=== PATIENT | male | born 1965 | race Caucasian/White ===

== ENCOUNTER 2023-08-24 05:55 | Day surgery (SDC) | payer OTHER ==
[2023-08-23 14:02] LABS: BASOPHILS % (AUTO) 0.1 % (0-1); EOSINOPHILS % (AUTO) 0.4 % (0-6); HEMATOCRIT 48.3 % (42.0-52.0); HEMOGLOBIN 16.2 g/dl (14.0-17.9); LYMPHOCYTES # (AUTO) 1.5 X10'3 (1.1-4.8); LYMPHOCYTES % (AUTO) 16.8 % (21-51); MEAN CORPUSCULAR HEMOGLOBIN 29.1 PG (27.0-31.0); MEAN CORPUSCULAR HGB CONC 33.5 g/dL (33.0-36.5); MEAN CORPUSCULAR VOLUME 87.1 FL (78-98); MONOCYTES # (AUTO) 0.8 X10'3 (0-0.9); MONOCYTES % (AUTO) 9.2 % (2-12); NEUTROPHILS # (AUTO) 6.6 X10'3 (1.8-7.7); NEUTROPHILS % (AUTO) 73.5 % (42-75); PLATELET COUNT 229 X10'3 (140-440); RED BLOOD COUNT 5.54 X10'6 (4.70-6.10); RED CELL DISTRIBUTION WIDTH 14.8 % (11.5-14.5); WHITE BLOOD COUNT 8.9 X10'3 (4.5-11.0)
[2023-08-23 14:15] LABS: ALBUMIN 4.3 G/DL (3.4-5.0); ANION GAP 2 (8-16); BLOOD UREA NITROGEN 16 MG/DL (7-18); BUN/CREATININE RATIO 19.8 (10.0-20.0); CALCIUM 8.4 MG/DL (8.5-10.1); CHLORIDE 105 MMOL/L (99-107); CREATININE 0.81 MG/DL (0.60-1.10); GLUCOSE 99 MG/DL (70-104); POTASSIUM 4.3 MMOL/L (3.5-5.1); SODIUM 144 MMOL/L (135-145); TOTAL CARBON DIOXIDE 37.5 MMOL/L (24-32); eGFR > 90 ML/MIN
[2023-08-23 14:20] LABS: APTT 27 SECONDS (22-32); PROTHROMBIN TIME 10.3 SECONDS (9.0-12.0)
[~2023-08-24] VITALS: Ht 175.3 cm; Wt 95.0 kg
[2023-08-24] VITALS (13 sets, daily range): BP systolic 122–136; BP diastolic 48–56; PULSE 63–75; RESP 12–15; TEMP 98.2; O2SAT 95–97
[2023-08-24] MEDS ORDERED: LEVO175T7 PO (06:09)
[2023-08-24] MEDS ORDERED: EPLE25TA4 PO (06:09)
[2023-08-24] MEDS ORDERED: SPIR25TA5 PO (06:09)
[2023-08-24] MEDS ORDERED: FURO20TA4 PO (06:09)
[2023-08-24] MEDS ORDERED: FAMO40TA58 PO (06:09)
[2023-08-24] MEDS ORDERED: SACU1TAB PO (06:09)
[2023-08-24] MEDS ORDERED: EMPA10TA PO (06:09)
[2023-08-24] MEDS ORDERED: METO-395 PO (06:09)
[2023-08-24] MEDS ORDERED: FEXO-271 PO (06:33)
[2023-08-24] MEDS ORDERED: FERR-116 PO (06:33)
[2023-08-24] MEDS ORDERED: NITR0.4T51 SL (06:33)
[2023-08-24] MEDS: normal saline 1,000 ML IV SCH (07:19)
[2023-08-24] MEDS: diphenhydrAMINE 25mg capsule PO PRN (07:19)
[2023-08-24] MEDS: LORazepam 0.5 MG tablet PO PRN (07:19)
[2023-08-24] MEDS ORDERED: heparin 1,000unit/ml 10ml vial 10 ML ONE (07:21)
[2023-08-24] MEDS ORDERED: verapamil 2.5 mg/ml inj IV ONE (07:21)
[2023-08-24] MEDS ORDERED: midazolam 1 mg/ML 2ml injection ONE (07:21)
[2023-08-24] MEDS ORDERED: iohexol 350 MG/ML 50ML vial IV ONE ×2 (07:21→08:17)
[2023-08-24] MEDS ORDERED: fentaNYL/PF 50MCG/1 ML 2ML syringe ONE (07:21)
[2023-08-24] MEDS ORDERED: LIDOcaine 1% (10mg/ml) 2ml vial ONE (07:21)
[2023-08-24] MEDS ORDERED: nitroGLYCERIN 500mcg/5mL D5W 5 ML IV ONE (07:22)
[2023-08-24] MEDS ORDERED: iohexol 350MG/ML 100ml bottle IV ONE (07:22)
[2023-08-24 08:53] LABS: ISTAT HGB ART 14.6 g/dl (14.0-17.9); ISTAT Hct ART 43 %PCV (42-52); ISTAT O2 SATURATION ARTERIAL 96 % (95-98); ISTAT SOURCE ART
[2023-08-24 09:31] LABS: ISTAT HGB MIX 13.9 g/dl (14.0-17.9); ISTAT Hct MIX 41 %PCV (42-52); ISTAT O2 SATURATION MIX VENOUS 71 % (60-80); ISTAT SOURCE OTHER
== END 2023-08-24 15:30 | disposition home or self-care (01) ==
LOC: SSTAY O 05:55
PROVIDERS: ATTEND Internal Medicine Cardiovascular Disease
DX: I35.1 Nonrheumatic aortic (valve) insufficiency (principal); I42.9 Cardiomyopathy, unspecified; I11.0 Hypertensive heart disease with heart failure; I50.23 Acute on chronic systolic (congestive) heart failure; E78.5 Hyperlipidemia, unspecified; E11.9 Type 2 diabetes mellitus without complications; I27.20 Pulmonary hypertension, unspecified; I77.810 Thoracic aortic ectasia; E66.01 Morbid (severe) obesity due to excess calories; Z68.29 Body mass index [BMI] 29.0-29.9, adult; Z88.8 Allergy status to other drugs, medicaments and biological substances; Z82.49 Family history of ischemic heart disease and other diseases of the circulatory system; Z81.8 Family history of other mental and behavioral disorders
CPT/HCPCS: 36415; 76937; 80048; 82803; 85014; 85025; 85610; 85730; 93005; 93460; 93567; J1644; J2250; J3010; J3490; J7030; Q0163; Q9967; 93458; 99152; 99153; A6258; A6402; A6449; C1725; C1751; C1894

== ENCOUNTER 2023-12-23 05:37 | Inpatient (IN) | payer OTHER ==
[2023-12-15 14:30] LABS: BILIRUBIN,URINE NEGATIVE (Neg); CLARITY,URINE CLEAR (Clear); COLOR,URINE YELLOW (Yellow); GLUCOSE, URINE 500 mg/dl (Neg); KETONES,URINE TRACE mg/dl (Neg); LEUKOCYTE ESTERASE ,URINE NEGATIVE (Neg); NITRITES, URINE NEGATIVE (Neg); OCCULT BLOOD,URINE NEGATIVE (Neg); PROTEIN,URINE NEGATIVE (Neg)
[2023-12-15 14:31] LABS: UA COLLECTION TYPE VOIDED
[2023-12-15 14:35] LABS: BASOPHILS % (AUTO) 0.1 % (0-1); EOSINOPHILS % (AUTO) 0.2 % (0-6); LYMPHOCYTES # (AUTO) 1.4 X10'3 (1.1-4.8); LYMPHOCYTES % (AUTO) 13.8 % (21-51); MEAN CORPUSCULAR HEMOGLOBIN 29.8 PG (27.0-31.0); MEAN CORPUSCULAR HGB CONC 33.8 g/dL (33.0-36.5); MEAN CORPUSCULAR VOLUME 88.4 FL (78-98); MEAN PLATELET VOLUME 8.3 FL (7.4-10.4); MONOCYTES # (AUTO) 0.9 X10'3 (0-0.9); MONOCYTES % (AUTO) 8.4 % (2-12); NEUTROPHILS % (AUTO) 77.5 % (42-75); PRE OP HEMOGLOBIN 15.5 g/dL (14.0-17.9); PRE OP PLATELET COUNT 245 X10'3 (140-440); PRE OP WHITE BLOOD COUNT 10.3 10'3 (4.8-10.8); RED CELL DISTRIBUTION WIDTH 13.6 % (11.5-14.5)
[2023-12-15 14:41] LABS: PRE OP PROTIME 10.4 SECONDS (9.0-12.0)
[2023-12-15 14:43] LABS: ALBUMIN 3.9 G/DL (3.4-5.0); ALBUMIN/GLOBULIN RATIO 1.1 (1.1-1.5); ALKALINE PHOSPHATASE 74 IU/L (46-116); BLOOD UREA NITROGEN 19 MG/DL (7-18); BUN/CREATININE RATIO 18.8 (10.0-20.0); CALCIUM 8.8 MG/DL (8.5-10.1); CHLORIDE 104 MMOL/L (99-107); CREATININE 1.01 MG/DL (0.60-1.10); PRE OP ALT 29 U/L (30-65); PRE OP ANION GAP 7 (8-16); PRE OP AST 15 U/L (10-37); PRE OP BILIRUB, TOTAL 0.8 MG/DL (0.0-1.0); PRE OP GLUCOSE 98 MG/DL (70-104); PRE OP POTASSIUM 3.9 MMOL/L (3.4-5.1); PRE OP SODIUM 140 MMOL/L (135-145); TOTAL CARBON DIOXIDE 29.1 MMOL/L (24-32); TOTAL PROTEIN 7.3 G/DL (6.4-8.2); eGFR 76 ML/MIN
[2023-12-15 14:44] LABS: HEMOGLOBIN A1C 5.4 % (4.5-6.2)
[2023-12-19 06:56] LABS: ABG BASE EXCESS 1.7 mmol/L (-2.0-2.0); ABG OXYGEN SATURATION 97.3 % (94-97); ABG PCO2 (T) 35.4 mmHg (35.0-48.0); ABG PH (T) 7.466 (7.340-7.440); ABG PO2 (T) 90.8 mmHg (75.0-100.0); FCOHb 0.1 % (0.0-3.9); FHHb 2.7 % (0.0-5.0); FMetHb 0.3 % (0.0-1.5); FO2Hb 96.9 % (94-97); MODE ROOM AIR; TOTAL HEMOGLOBIN 16.4 G/dl (14.0-17.9)
[2023-12-23] VITALS (26 sets, daily range): BP systolic 93–149; BP diastolic 57–88; PULSE 71–108; RESP 11–19; TEMP 98; O2SAT 96–100
[~2023-12-23] VITALS: Ht 170.2 cm; Wt 95.7 kg
[2023-12-23] MEDS: midazolam 1 mg/ML 2ml injection IV ONE ×2 (05:30→08:00)
[2023-12-23] MEDS: DOCUMENT DATE & TIME OF BETA-BLOCKER PO ONE (05:30)
[2023-12-23] MEDS: Insulin Reg/NS 100units/100mL 100 ML IV SCH ×2 (05:30→12:44)
[~2023-12-23 05:37] MED LIST: ASCO500C14 PO; CHOL500061 PO; EMPA10TA PO; EPLE25TA4 PO; FAMO40TA58 PO; FERR-116 PO; FEXO-271 PO; FURO20TA4 PO; LEVO175T7 PO; METO-395 PO; MULT-1168 PO; SACU1TAB PO; dextrose 50%-water 50ml dispensing syringe IV PRN; insulin glargine (Lantus) pen - multi-dose SQ PRN
[2023-12-23] MEDS: ceFAZolin 1000mg inj ONE (06:07)
[2023-12-23] MEDS: epiNEPHrine 1 mg/ml inj ONE (06:07)
[2023-12-23] MEDS: vancomycin 1,000mg inj ONE (06:08)
[2023-12-23] MEDS: ringers solution, lacted 1,000 ML IV SCH (06:13)
[2023-12-23] MEDS: vancomycin 1,500 MG in NS 300ml IV soln IV ONE (06:14)
[2023-12-23] MEDS: cefazolin 2gm/D5W 100mL 100 ML IV ONE (06:14)
[2023-12-23] MEDS: mupirocin 2% nasal ointment 1gm UD NS ONE (06:14)
[2023-12-23] MEDS: metoprolol tartrate 12.5mg (1/2 tablet) PO ONE (06:20)
[2023-12-23] MEDS: famotidine 20mg tablet PO ONE (06:23)
[2023-12-23] MEDS ORDERED: MIDAZolam 1mg/ml 10ml vial ONE (07:44)
[2023-12-23] MEDS ORDERED: SUfentanil 50mcg/ml 1ml amp IV ONE (07:45)
[2023-12-23] MEDS ORDERED: rocuronium 10mg/ml inj IV ONE ×3 (07:54→09:42)
[2023-12-23] MEDS ORDERED: propofol inj 20 ML IV ONE (07:54)
[2023-12-23] MEDS ORDERED: 0.9 % SODIUM CHLORIDE 10 ML VIAL ONE (07:54)
[2023-12-23] MEDS ORDERED: fentaNYL/PF 50MCG/1 ML 2ML syringe IV PRN (08:00)
[2023-12-23] MEDS: FENTANYL-0.9 % NACL/PF 100 ML IV SCH (08:00)
[2023-12-23] MEDS: midazolam 100mg in NS 100ml 100 ML IV SCH (08:00)
[2023-12-23] MEDS ORDERED: isoflurane 100ml inhalation liquid IH ONE (08:15)
[2023-12-23] MEDS ORDERED: LIDOcaine 2% (20mg/ml) 5ml vial ONE (08:15)
[2023-12-23] MEDS ORDERED: ePHEDrine 50MG/ML INJ. ONE (08:16)
[2023-12-23] MEDS ORDERED: phenylephrine 10mg/ml inj. -priapism dosing ONE (08:16)
[2023-12-23 09:18] LABS: ABG BASE EXCESS -0.2 mmol/L (-2.0-2.0); ABG OXYGEN SATURATION 99.5 % (94-97); ABG PCO2 33.4 mmHg (35.0-48.0); ABG PH 7.456 (7.340-7.440); ABG PO2 448.5 mmHg (75.0-100.0); CL (ABG) 104 mmol/L (99-107); FCOHb 0.2 % (0.0-3.9); FHHb 0.5 % (0.0-5.0); FMetHb 0.1 % (0.0-1.5); FO2Hb 99.2 % (94-97); GLUCOSE (ABG) 126 mg/dl (70-104); IONIZED CA (ABG) 1.11 mmol/L (1.10-1.30)
[2023-12-23] MEDS: vancomycin 1,000mg inj IVT ONE (09:21)
[2023-12-23] MEDS ORDERED: dexamethasone sod phosphate 4mg/ml inj. ONE (09:43)
[2023-12-23] MEDS ORDERED: ondansetron/PF 4mg/2ml inj ONE (09:43)
[2023-12-23 09:52] LABS: ABG HCO3 24.5 mmol/L (22.0-26.0); ABG OXYGEN SATURATION 98.8 % (94-97); ABG PCO2 35.3 mmHg (35.0-48.0); ABG PO2 216.4 mmHg (75.0-100.0); CL (ABG) 101 mmol/L (99-107); FCOHb 0.3 % (0.0-3.9); FHHb 1.2 % (0.0-5.0); FMetHb 0.3 % (0.0-1.5); FO2Hb 98.2 % (94-97); GLUCOSE (ABG) 137 mg/dl (70-104); K (ABG) 5.3 mmol/L (3.5-5.1); TOTAL HEMOGLOBIN 10.7 G/dl (14.0-17.9)
[2023-12-23 10:18] LABS: ABG HCO3 VENOUS 24.6 mmol/L (21.0-28.0); ABG OXYGEN SATURATION VENOUS 79.1 % (75 - 99 %); ABG PCO2 VENOUS 40.1 mmHg (41.0-54.0); ABG PH (VENOUS) 7.406 (7.310-7.450); ABG PO2 VENOUS 42.8 mmHg (25.0-35.0); CL (ABG) 101 mmol/L (99-107); FCOHb VENOUS 0.1 %; FHHb VENOUS 20.8 %; FMetHb VENOUS 0.3 % (0.0 - 0.5); FO2Hb VENOUS 78.8 %; GLUCOSE (ABG) 163 mg/dl (70-104); IONIZED CA (ABG) 1.05 mmol/L (1.10-1.30); K (ABG) 4.9 mmol/L (3.5-5.1); TOTAL HEMOGLOBIN 11.8 G/dl (14.0-17.9)
[2023-12-23 10:42] LABS: ABG BASE EXCESS -0.5 mmol/L (-2.0-2.0); ABG HCO3 23.9 mmol/L (22.0-26.0); ABG OXYGEN SATURATION 99.2 % (94-97); ABG PCO2 38.1 mmHg (35.0-48.0); ABG PH 7.415 (7.340-7.440); ABG PO2 358.8 mmHg (75.0-100.0); CL (ABG) 100 mmol/L (99-107); FCOHb 0.3 % (0.0-3.9); FHHb 0.8 % (0.0-5.0); FMetHb 0.3 % (0.0-1.5); FO2Hb 98.6 % (94-97); GLUCOSE (ABG) 151 mg/dl (70-104); IONIZED CA (ABG) 1.31 mmol/L (1.10-1.30); K (ABG) 4.8 mmol/L (3.5-5.1); TOTAL HEMOGLOBIN 11.3 G/dl (14.0-17.9)
[2023-12-23] MEDS ORDERED: ceFAZolin 1000mg inj ONE ×2 (10:58)
[2023-12-23 11:00] LABS: ABG BASE EXCESS -2.1 mmol/L (-2.0-2.0); ABG HCO3 21.3 mmol/L (22.0-26.0); ABG OXYGEN SATURATION 99.2 % (94-97); ABG PH 7.441 (7.340-7.440); ABG PO2 456.9 mmHg (75.0-100.0); CL (ABG) 103 mmol/L (99-107); FCOHb 0.3 % (0.0-3.9); FHHb 0.8 % (0.0-5.0); FMetHb 0.3 % (0.0-1.5); FO2Hb 98.6 % (94-97); GLUCOSE (ABG) 134 mg/dl (70-104); K (ABG) 4.4 mmol/L (3.5-5.1); TOTAL HEMOGLOBIN 11.6 G/dl (14.0-17.9)
[2023-12-23 11:03] LABS: ACTIVATED CLOTTING TIME 122 SEC (101-148)
[2023-12-23] MEDS ORDERED: Neutra Phos packet PO PRN (11:25)
[2023-12-23] MEDS ORDERED: metoclopramide 5 mg/ml inj IV PRN (11:25)
[2023-12-23] MEDS ORDERED: acetaminophen 325mg tablet PO PRN ×2 (11:25)
[2023-12-23] MEDS ORDERED: morphine 4 MG/ML inj SYRINge IV PRN (11:25)
[2023-12-23] MEDS ORDERED: potassium CL 10mEq/100ml bag 100 ML IV PRN (11:25)
[2023-12-23] MEDS ORDERED: niCARDipine-NS 40mg/200ml IVPB 200 ML IV PRN (11:25)
[2023-12-23] MEDS ORDERED: potassium Cl 20 mEq SR tablet PO PRN (11:25)
[2023-12-23] MEDS ORDERED: magnesium 4gm in 100ml NS 100 ML IV PRN (11:25)
[2023-12-23] MEDS ORDERED: dextrose 50%-water 50ml dispensing syringe IV PRN (11:25)
[2023-12-23] MEDS ORDERED: potassium Cl 40MEQ/1/2NS 520ml 520 ML IV PRN (11:25)
[2023-12-23] MEDS ORDERED: sodium phosphate inj. 30 MMOL in dextrose 5%-water 250 ML IV PRN (11:25)
[2023-12-23] MEDS ORDERED: insulin glargine (Lantus) pen - multi-dose SQ PRN (11:25)
[2023-12-23] MEDS ORDERED: magnesium hydroxide 30ml (MOM) UD suspension PO PRN (11:25)
[2023-12-23] MEDS ORDERED: mineral oil 133ml enema RC PRN (11:25)
[2023-12-23] MEDS ORDERED: bisacodyl 10mg suppository rectal RC PRN (11:25)
[2023-12-23 12:01] LABS: ABG BASE EXCESS -2.1 mmol/L (-2.0-2.0); ABG HCO3 22.5 mmol/L (22.0-26.0); ABG OXYGEN SATURATION 99.7 % (94-97); ABG PCO2 (T) 37.8 mmHg (35.0-48.0); ABG PH (T) 7.392 (7.340-7.440); FCOHb 0.1 % (0.0-3.9); FHHb 0.3 % (0.0-5.0); FMetHb 0.1 % (0.0-1.5); FO2Hb 99.5 % (94-97); MODE SIMV-VC; PATIENT TEMPERATURE 36.8; PEEP 5 cm H2O; RESPIRATORY RATE 12 b/min; TIDAL VOLUME 550 mL; TOTAL HEMOGLOBIN 14.7 G/dl (14.0-17.9)
[2023-12-23] MEDS: albumin (Human) 5% 250ml 250 ML IV PRN (12:39)
[2023-12-23 12:41] LABS: BASOPHILS % (AUTO) 0 % (0-1); EOSINOPHILS % (AUTO) 0.2 % (0-6); HEMOGLOBIN 13.9 g/dl (14.0-17.9); LYMPHOCYTES # (AUTO) 1.2 X10'3 (1.1-4.8); LYMPHOCYTES % (AUTO) 6.1 % (21-51); MEAN CORPUSCULAR HEMOGLOBIN 29.1 PG (27.0-31.0); MEAN CORPUSCULAR VOLUME 88.3 FL (78-98); MEAN PLATELET VOLUME 8.2 FL (7.4-10.4); MONOCYTES # (AUTO) 0.7 X10'3 (0-0.9); MONOCYTES % (AUTO) 3.2 % (2-12); NEUTROPHILS # (AUTO) 18.5 X10'3 (1.8-7.7); NEUTROPHILS % (AUTO) 90.5 % (42-75); PLATELET COUNT 155 X10'3 (140-440); RED BLOOD COUNT 4.76 X10'6 (4.70-6.10); RED CELL DISTRIBUTION WIDTH 13.7 % (11.5-14.5); WHITE BLOOD COUNT 20.4 X10'3 (4.5-11.0)
[2023-12-23] MEDS: DOBUTamine-DoBUTrex 500mg/D5W 250 ML IV PRN (12:46)
[2023-12-23 12:51] LABS: APTT 28 SECONDS (22-32); INR 1.1 INR
[2023-12-23] MEDS: NORepinephrine 8mg/ 250ml NS 250 ML IV PRN (12:52)
[2023-12-23 12:53] LABS: ALANINE AMINOTRANSFERASE 22 U/L (12-78); ALBUMIN 3.1 G/DL (3.4-5.0); ALBUMIN/GLOBULIN RATIO 1.6 (1.1-1.5); ALKALINE PHOSPHATASE 39 IU/L (46-116); ANION GAP 8 (8-16); ASPARTATE AMINO TRANSFERASE 37 U/L (10-37); BILIRUBIN,TOTAL 0.9 MG/DL (0.1-1.0); BLOOD UREA NITROGEN 13 MG/DL (7-18); CALCIUM 8.1 MG/DL (8.5-10.1); CHLORIDE 108 MMOL/L (99-107); CREATININE 0.81 MG/DL (0.60-1.10); GLUCOSE 126 MG/DL (70-104); MAGNESIUM 3.4 MG/DL (1.5-2.4); PHOSPHORUS 1.8 MG/DL (2.3-4.5); SODIUM 142 MMOL/L (135-145); TOTAL CARBON DIOXIDE 26.1 MMOL/L (24-32); eCRCL 99 ML/MIN; eGFR > 90 ML/MIN
[2023-12-23 12:54] LABS: POTASSIUM 3.8 MMOL/L (3.5-5.1)
[2023-12-23] MEDS: nitroGLYCERIN-Tridil 50MG/D5W 250 ML IV PRN (12:54)
[2023-12-23 14:16] LABS: ABG BASE EXCESS -0.8 mmol/L (-2.0-2.0); ABG HCO3 21.9 mmol/L (22.0-26.0); ABG OXYGEN SATURATION 97.5 % (94-97); ABG PCO2 (T) 30.1 mmHg (35.0-48.0); ABG PH (T) 7.477 (7.340-7.440); ABG PO2 (T) 89.7 mmHg (75.0-100.0); FCOHb 0.7 % (0.0-3.9); FHHb 2.5 % (0.0-5.0); FMetHb 0.3 % (0.0-1.5); FO2Hb 96.5 % (94-97); MODE CPAP; PATIENT TEMPERATURE 36.4; PEEP 5 cm H2O; TOTAL HEMOGLOBIN 14.2 G/dl (14.0-17.9)
[2023-12-23] MEDS: ketorolac trometh. 30mg/ml inj. IV ONE (14:29)
[2023-12-23] MEDS: morphine 2 MG/ML inj. syringe IV PRN (16:40)
[2023-12-23] MEDS: sodium chloride 0.45% 1,000 ML IV SCH (16:41)
[2023-12-23] MEDS: ceFAZolin/D5W- 1GM premix 50 ML IV SCH (16:48)
[2023-12-23] MEDS: sodium phosphate inj. 15 MMOL in dextrose 5%-water 250 ML IV PRN (17:25)
[2023-12-23 18:22] LABS: BASOPHILS # (AUTO) 0.1 X10'3 (0-0.2); BASOPHILS % (AUTO) 0.3 % (0-1); EOSINOPHILS % (AUTO) 0 % (0-6); HEMATOCRIT 39.2 % (42.0-52.0); LYMPHOCYTES # (AUTO) 0.4 X10'3 (1.1-4.8); LYMPHOCYTES % (AUTO) 1.9 % (21-51); MEAN CORPUSCULAR HEMOGLOBIN 29.3 PG (27.0-31.0); MEAN CORPUSCULAR HGB CONC 33.1 g/dL (33.0-36.5); MEAN CORPUSCULAR VOLUME 88.5 FL (78-98); MEAN PLATELET VOLUME 8.1 FL (7.4-10.4); MONOCYTES # (AUTO) 0.3 X10'3 (0-0.9); MONOCYTES % (AUTO) 1.4 % (2-12); NEUTROPHILS # (AUTO) 19.2 X10'3 (1.8-7.7); NEUTROPHILS % (AUTO) 96.4 % (42-75); PLATELET COUNT 145 X10'3 (140-440); RED BLOOD COUNT 4.43 X10'6 (4.70-6.10); RED CELL DISTRIBUTION WIDTH 13.5 % (11.5-14.5)
[2023-12-23 18:25] LABS: ALBUMIN 3.6 G/DL (3.4-5.0); ANION GAP 10 (8-16); BLOOD UREA NITROGEN 14 MG/DL (7-18); BUN/CREATININE RATIO 17.7 (10.0-20.0); CALCIUM 8.1 MG/DL (8.5-10.1); CHLORIDE 109 MMOL/L (99-107); CREATININE 0.79 MG/DL (0.60-1.10); GLUCOSE 129 MG/DL (70-104); MAGNESIUM 2.5 MG/DL (1.5-2.4); PHOSPHORUS 2.7 MG/DL (2.3-4.5); POTASSIUM 4.4 MMOL/L (3.5-5.1); SODIUM 143 MMOL/L (135-145); TOTAL CARBON DIOXIDE 23.9 MMOL/L (24-32); eCRCL 102 ML/MIN; eGFR > 90 ML/MIN
[2023-12-23 18:50] LABS: TOTAL CELLS COUNTED 100
[2023-12-23 18:51] LABS: PLATELET ESTIMATE NORMAL
[2023-12-23] MEDS: potassium Cl 20mEq/100mL bag 100 ML IV PRN (19:23)
[2023-12-23] MEDS: mupirocin 2% nasal ointment 1gm UD NS SCH (20:05)
[2023-12-23] MEDS: sennosides/docusate sodium tablet PO SCH (20:05)
[2023-12-23] MEDS: atorvastatin 10mg tablet PO SCH (20:05)
[2023-12-23] MEDS: vancomycin/NS 1 GM ADD-VANTAGE 250 ML IV SCH (20:06)
[2023-12-23] MEDS: HYDROcodone/acetaminophen 10/325mg tab PO PRN (22:06)
[2023-12-24] VITALS (24 sets, daily range): BP systolic 101–134; BP diastolic 63–86; PULSE 68–102; RESP 11–22; O2SAT 92–98
[2023-12-24] MEDS: HYDROcodone/acetaminophen 10/325mg tab PO PRN (02:04)
[2023-12-24 03:18] LABS: BASOPHILS % (AUTO) 0.1 % (0-1); EOSINOPHILS % (AUTO) 0 % (0-6); HEMATOCRIT 35.3 % (42.0-52.0); HEMOGLOBIN 11.8 g/dl (14.0-17.9); LYMPHOCYTES # (AUTO) 0.4 X10'3 (1.1-4.8); LYMPHOCYTES % (AUTO) 2.4 % (21-51); MEAN CORPUSCULAR HEMOGLOBIN 29.4 PG (27.0-31.0); MEAN CORPUSCULAR HGB CONC 33.5 g/dL (33.0-36.5); MEAN CORPUSCULAR VOLUME 87.8 FL (78-98); MEAN PLATELET VOLUME 8.1 FL (7.4-10.4); MONOCYTES # (AUTO) 0.4 X10'3 (0-0.9); MONOCYTES % (AUTO) 2.4 % (2-12); NEUTROPHILS # (AUTO) 15.8 X10'3 (1.8-7.7); NEUTROPHILS % (AUTO) 95.1 % (42-75); PLATELET COUNT 124 X10'3 (140-440); RED BLOOD COUNT 4.02 X10'6 (4.70-6.10); RED CELL DISTRIBUTION WIDTH 13.7 % (11.5-14.5); WHITE BLOOD COUNT 16.6 X10'3 (4.5-11.0)
[2023-12-24 03:39] LABS: ALANINE AMINOTRANSFERASE 24 U/L (12-78); ALBUMIN 3.6 G/DL (3.4-5.0); ALBUMIN/GLOBULIN RATIO 1.9 (1.1-1.5); ALKALINE PHOSPHATASE 33 IU/L (46-116); ANION GAP 9 (8-16); ASPARTATE AMINO TRANSFERASE 39 U/L (10-37); BILIRUBIN,TOTAL 0.6 MG/DL (0.1-1.0); BLOOD UREA NITROGEN 11 MG/DL (7-18); BUN/CREATININE RATIO 16.4 (10.0-20.0); CALCIUM 8.2 MG/DL (8.5-10.1); CHLORIDE 105 MMOL/L (99-107); CREATININE 0.67 MG/DL (0.60-1.10); GLUCOSE 134 MG/DL (70-104); MAGNESIUM 2.3 MG/DL (1.5-2.4); PHOSPHORUS 4.6 MG/DL (2.3-4.5); POTASSIUM 4.3 MMOL/L (3.5-5.1); SODIUM 140 MMOL/L (135-145); TOTAL CARBON DIOXIDE 26.3 MMOL/L (24-32); TOTAL PROTEIN 5.5 G/DL (6.4-8.2); eCRCL 120 ML/MIN; eGFR > 90 ML/MIN
[2023-12-24] MEDS: magnesium 2GM in 50ml NS 50 ML IV PRN (04:03)
[2023-12-24] MEDS: potassium Cl 40MEQ/270ML bag 250 ML IV PRN (05:38)
[2023-12-24] MEDS: cetirizine 10mg tablet PO SCH (07:52)
[2023-12-24] MEDS: ondansetron/PF 4mg/2ml inj IV PRN (07:52)
[2023-12-24] MEDS: famotidine 20mg tablet PO SCH (07:52)
[2023-12-24] MEDS: levoTHYROXINE 175mcg tablet PO SCH (07:52)
[2023-12-24] MEDS: aspirin 81mg tab.chew PO SCH (07:52)
[2023-12-24] MEDS: metoprolol tartrate 12.5mg (1/2 tablet) PO SCH (07:56)
[2023-12-24] MEDS: mineral oil/petrolatum ophthal oint EACHEYE SCH (07:57)
[2023-12-24] MEDS: cholecalciferol (vitamin D3) 1,000 unit (25mcg) tablet PO SCH (10:21)
[2023-12-24] MEDS ORDERED: glucagon, human recombinant 1mg kit SUBCUT PRN (17:45)
[2023-12-24] MEDS ORDERED: dextrose 50%-water 50ml dispensing syringe IV PRN ×2 (17:45)
[2023-12-24] MEDS ORDERED: DEXTROSE 15 GM of carb/4 tabs (each vial/BOTTLE has 4 tablets) PO PRN ×2 (17:45)
[2023-12-24] MEDS: INSULIN LISPRO 100 UNIT/ML INSULN.PEN MULTI-DOSE SQ SCH ×2 (19:24→22:12)
[2023-12-25] VITALS (18 sets, daily range): BP systolic 109–151; BP diastolic 65–103; PULSE 67–103; RESP 11–21; TEMP 97.8–99.4; O2SAT 91–100
[2023-12-25 04:10] LABS: MEAN PLATELET VOLUME 8.2 FL (7.4-10.4); RED BLOOD COUNT 3.68 X10'6 (4.70-6.10); RED CELL DISTRIBUTION WIDTH 13.8 % (11.5-14.5)
[2023-12-25 04:12] LABS: BASOPHILS % (AUTO) 0.1 % (0-1); EOSINOPHILS % (AUTO) 0.1 % (0-6); HEMATOCRIT 32.5 % (42.0-52.0); HEMOGLOBIN 10.9 g/dl (14.0-17.9); LYMPHOCYTES # (AUTO) 0.9 X10'3 (1.1-4.8); LYMPHOCYTES % (AUTO) 4.8 % (21-51); MEAN CORPUSCULAR HEMOGLOBIN 29.7 PG (27.0-31.0); MEAN CORPUSCULAR HGB CONC 33.6 g/dL (33.0-36.5); MEAN CORPUSCULAR VOLUME 88.5 FL (78-98); MONOCYTES # (AUTO) 1.3 X10'3 (0-0.9); MONOCYTES % (AUTO) 6.7 % (2-12); NEUTROPHILS # (AUTO) 16.7 X10'3 (1.8-7.7); NEUTROPHILS % (AUTO) 88.3 % (42-75); PLATELET COUNT 134 X10'3 (140-440)
[2023-12-25 04:51] LABS: ALBUMIN 3.3 G/DL (3.4-5.0); ANION GAP 7 (8-16); BLOOD UREA NITROGEN 18 MG/DL (7-18); BUN/CREATININE RATIO 22.2 (10.0-20.0); CALCIUM 8.3 MG/DL (8.5-10.1); CHLORIDE 103 MMOL/L (99-107); CREATININE 0.81 MG/DL (0.60-1.10); GLUCOSE 102 MG/DL (70-104); MAGNESIUM 2.2 MG/DL (1.5-2.4); PHOSPHORUS 3.4 MG/DL (2.3-4.5); POTASSIUM 4.8 MMOL/L (3.5-5.1); SODIUM 138 MMOL/L (135-145); TOTAL CARBON DIOXIDE 28.4 MMOL/L (24-32); eCRCL 99 ML/MIN; eGFR > 90 ML/MIN
[2023-12-25] MEDS: MIDAZOLAM IN NACL,ISO-OSMOT/PF 100 ML IV SCH (05:55)
[2023-12-25] MEDS: pantoprazole 40mg Tablet.DR PO SCH (07:32)
[2023-12-25] MEDS ORDERED: potassium CL 10mEq/100ml bag 100 ML IV PRN (09:00)
[2023-12-25] MEDS ORDERED: potassium Cl 20 mEq SR tablet PO PRN ×2 (09:00)
[2023-12-25] MEDS ORDERED: potassium Cl 20mEq/100mL bag 100 ML IV PRN (09:00)
[2023-12-25] MEDS ORDERED: potassium Cl 40MEQ/1/2NS 520ml 520 ML IV PRN (09:00)
[2023-12-25] MEDS ORDERED: magnesium 4gm in 100ml NS 100 ML IV PRN (09:00)
[2023-12-25] MEDS ORDERED: potassium Cl 40MEQ/270ML bag 250 ML IV PRN (09:00)
[2023-12-25] MEDS ORDERED: magnesium 2GM in 50ml NS 50 ML IV PRN (09:00)
[2023-12-25 09:39] LABS: THYROID STIMULATING HORMONE 8.01 ulU/ml (0.34-4.50)
[2023-12-25] MEDS: furosemide 40mg/4ml inj IV ONE (12:26)
[2023-12-25] MEDS: magnesium Cl slow-release 64mg tablet PO SCH (19:52)
[2023-12-25] MEDS: INSULIN LISPRO 100 UNIT/ML INSULN.PEN MULTI-DOSE SQ SCH (20:56)
[2023-12-26] VITALS (9 sets, daily range): BP systolic 97–128; BP diastolic 67–84; PULSE 56–153; RESP 14–20; TEMP 97.6–98.2; O2SAT 93–98
[2023-12-26 05:59] LABS: BASOPHILS % (AUTO) 0.2 % (0-1); EOSINOPHILS % (AUTO) 0.3 % (0-6); HEMATOCRIT 32.3 % (42.0-52.0); HEMOGLOBIN 10.8 g/dl (14.0-17.9); LYMPHOCYTES # (AUTO) 1.4 X10'3 (1.1-4.8); LYMPHOCYTES % (AUTO) 8.9 % (21-51); MEAN CORPUSCULAR HEMOGLOBIN 29.7 PG (27.0-31.0); MEAN CORPUSCULAR HGB CONC 33.4 g/dL (33.0-36.5); MEAN CORPUSCULAR VOLUME 88.8 FL (78-98); MEAN PLATELET VOLUME 8.6 FL (7.4-10.4); MONOCYTES # (AUTO) 1.5 X10'3 (0-0.9); MONOCYTES % (AUTO) 9.4 % (2-12); NEUTROPHILS # (AUTO) 12.8 X10'3 (1.8-7.7); NEUTROPHILS % (AUTO) 81.2 % (42-75); PLATELET COUNT 149 X10'3 (140-440); RED BLOOD COUNT 3.63 X10'6 (4.70-6.10); RED CELL DISTRIBUTION WIDTH 13.9 % (11.5-14.5); WHITE BLOOD COUNT 15.7 X10'3 (4.5-11.0)
[2023-12-26 06:10] LABS: ALBUMIN 3.2 G/DL (3.4-5.0); ANION GAP 5 (8-16); BLOOD UREA NITROGEN 18 MG/DL (7-18); BUN/CREATININE RATIO 27.3 (10.0-20.0); CALCIUM 8.2 MG/DL (8.5-10.1); CHLORIDE 101 MMOL/L (99-107); CREATININE 0.66 MG/DL (0.60-1.10); GLUCOSE 101 MG/DL (70-104); POTASSIUM 4.1 MMOL/L (3.5-5.1); SODIUM 137 MMOL/L (135-145); eCRCL 122 ML/MIN; eGFR > 90 ML/MIN
[2023-12-26 06:27] LABS: ACT @ 1.70 U 310 SEC (193-297); ACT @ 2.84 U 444 SEC (260-420); BASELINE ACT 154 SEC (101-148); PATIENT WEIGHT 91.0k KG
[2023-12-26] MEDS: magnesium citrate 296ml oral solution PO ONE (08:18)
[2023-12-26] MEDS: amiodarone 150mg/dext, iso-os 100 ML IV ONE ×2 (08:18→18:00)
[2023-12-26] MEDS: amiodarone/D5 360MG/200ML BAG 200 ML IV SCH (08:55)
[2023-12-26] MEDS ORDERED: ondansetron 4mg rapidly disintigrating tab PO PRN (11:10)
[2023-12-27] VITALS (14 sets, daily range): BP systolic 118–156; BP diastolic 71–90; PULSE 69–93; RESP 14–23; TEMP 96.8–98.6; O2SAT 92–97
[2023-12-27 06:03] LABS: BASOPHILS # (AUTO) 0.2 X10'3 (0-0.2); BASOPHILS % (AUTO) 1.5 % (0-1); EOSINOPHILS # (AUTO) 0.1 X10'3 (0-0.9); EOSINOPHILS % (AUTO) 0.7 % (0-6); HEMATOCRIT 32.5 % (42.0-52.0); HEMOGLOBIN 10.8 g/dl (14.0-17.9); LYMPHOCYTES # (AUTO) 1.2 X10'3 (1.1-4.8); LYMPHOCYTES % (AUTO) 10.3 % (21-51); MEAN CORPUSCULAR HEMOGLOBIN 29.3 PG (27.0-31.0); MEAN CORPUSCULAR HGB CONC 33.1 g/dL (33.0-36.5); MEAN CORPUSCULAR VOLUME 88.6 FL (78-98); MEAN PLATELET VOLUME 8.5 FL (7.4-10.4); MONOCYTES # (AUTO) 0.9 X10'3 (0-0.9); MONOCYTES % (AUTO) 7.5 % (2-12); NEUTROPHILS # (AUTO) 9.6 X10'3 (1.8-7.7); PLATELET COUNT 178 X10'3 (140-440); RED BLOOD COUNT 3.67 X10'6 (4.70-6.10)
[2023-12-27 06:19] LABS: ANION GAP 5 (8-16); BLOOD UREA NITROGEN 23 MG/DL (7-18); BUN/CREATININE RATIO 30.3 (10.0-20.0); CALCIUM 8.8 MG/DL (8.5-10.1); CHLORIDE 101 MMOL/L (99-107); CREATININE 0.76 MG/DL (0.60-1.10); GLUCOSE 103 MG/DL (70-104); MAGNESIUM 2.1 MG/DL (1.5-2.4); POTASSIUM 4.2 MMOL/L (3.5-5.1); SODIUM 137 MMOL/L (135-145); TOTAL CARBON DIOXIDE 31.2 MMOL/L (24-32); eCRCL 99 ML/MIN; eGFR > 90 ML/MIN
[2023-12-27] MEDS: metoprolol tartrate 12.5mg (1/2 tablet) PO ONE (08:18)
[2023-12-27] MEDS: furosemide 20 MG/2 ML vial IV ONE (12:08)
[2023-12-27] MEDS: amiodarone 200mg tablet PO SCH (12:09)
[2023-12-27] MEDS: metoprolol tartrate 25mg tablet PO SCH (20:15)
[2023-12-28 02:00] VITALS: BP 130/80; PULSE 75; RESP 14; TEMP 98.4
[2023-12-28 06:00] VITALS: BP 130/80; PULSE 76; RESP 14; TEMP 97.7
[2023-12-28 07:31] LABS: BASOPHILS % (AUTO) 0.1 % (0-1); EOSINOPHILS # (AUTO) 0.1 X10'3 (0-0.9); EOSINOPHILS % (AUTO) 0.5 % (0-6); HEMATOCRIT 31.5 % (42.0-52.0); HEMOGLOBIN 10.6 g/dl (14.0-17.9); LYMPHOCYTES % (AUTO) 8.5 % (21-51); MEAN CORPUSCULAR HEMOGLOBIN 29.7 PG (27.0-31.0); MEAN CORPUSCULAR HGB CONC 33.7 g/dL (33.0-36.5); MEAN CORPUSCULAR VOLUME 88.2 FL (78-98); MONOCYTES # (AUTO) 1.2 X10'3 (0-0.9); MONOCYTES % (AUTO) 9.8 % (2-12); NEUTROPHILS # (AUTO) 9.9 X10'3 (1.8-7.7); NEUTROPHILS % (AUTO) 81.1 % (42-75); PLATELET COUNT 227 X10'3 (140-440); RED BLOOD COUNT 3.57 X10'6 (4.70-6.10); RED CELL DISTRIBUTION WIDTH 13.9 % (11.5-14.5); WHITE BLOOD COUNT 12.2 X10'3 (4.5-11.0)
[2023-12-28 08:00] VITALS: RESP 17; O2SAT 93; O2SAT 98
[2023-12-28 08:08] LABS: ALBUMIN 2.9 G/DL (3.4-5.0); ANION GAP 6 (8-16); BLOOD UREA NITROGEN 18 MG/DL (7-18); BUN/CREATININE RATIO 27.7 (10.0-20.0); CALCIUM 8.6 MG/DL (8.5-10.1); CHLORIDE 101 MMOL/L (99-107); CREATININE 0.65 MG/DL (0.60-1.10); GLUCOSE 102 MG/DL (70-104); SODIUM 137 MMOL/L (135-145); TOTAL CARBON DIOXIDE 30.1 MMOL/L (24-32); eCRCL 116 ML/MIN; eGFR > 90 ML/MIN
[2023-12-28] MEDS ORDERED: HYDR-3972 PO (09:15)
[2023-12-28] MEDS ORDERED: AMI200T PO (09:15)
[2023-12-28] MEDS ORDERED: ASPI81TA53 PO (09:15)
[2023-12-28] MEDS ORDERED: ATOR10TA PO (09:15)
[2023-12-28 11:00] VITALS: BP 136/89; PULSE 87; RESP 16; TEMP 97.5
[2023-12-28 11:26] VITALS: PULSE 83; RESP 16; O2SAT 96
== END 2023-12-28 14:13 | disposition home or self-care (01) | DRG 219 ==
LOC: PAS IN 05:37 → CICU 2S 10:00 → PCU 3S 12-25 13:55
PROVIDERS: ADMIT Thoracic Surgery (Cardiothoracic Vascular Surgery); ATTEND Thoracic Surgery (Cardiothoracic Vascular Surgery)
PROC: 02RX0JZ Replacement of Thoracic Aorta, Ascending/Arch with Synthetic Substitute, Open Approach (ICD-10-PCS; 2023-12-23)
PROC: 5A1221Z Performance of Cardiac Output, Continuous (ICD-10-PCS; 2023-12-23)
PROC: 02UX0JZ Supplement Thoracic Aorta, Ascending/Arch with Synthetic Substitute, Open Approach (ICD-10-PCS; 2023-12-23)
PROC: B24BZZ4 Ultrasonography of Heart with Aorta, Transesophageal (ICD-10-PCS; 2023-12-23)
PROC: 02L70CK Occlusion of Left Atrial Appendage with Extraluminal Device, Open Approach (ICD-10-PCS; 2023-12-23)
PROC: 03HY32Z Insertion of Monitoring Device into Upper Artery, Percutaneous Approach (ICD-10-PCS; 2023-12-23)
PROC: 02RF08Z Replacement of Aortic Valve with Zooplastic Tissue, Open Approach (ICD-10-PCS; principal; 2023-12-23 08:15)
DX: I35.2 Nonrheumatic aortic (valve) stenosis with insufficiency (principal); I49.01 Ventricular fibrillation; I71.21 Aneurysm of the ascending aorta, without rupture; I50.9 Heart failure, unspecified; I48.91 Unspecified atrial fibrillation; E11.9 Type 2 diabetes mellitus without complications; E78.5 Hyperlipidemia, unspecified; I11.0 Hypertensive heart disease with heart failure; E66.9 Obesity, unspecified; Z68.33 Body mass index [BMI] 33.0-33.9, adult; Z88.8 Allergy status to other drugs, medicaments and biological substances
CPT/HCPCS: 36415; 36600; 71045; 71046; 71250; 76376; 80048; 80053; 81003; 82330; 82435; 82803; 82947; 82948; 83036; 83735; 84100; 84132; 84295; 84443; 85007; 85018; 85025; 85347; 85610; 85730; 86885; 86900; 86901; 86920; 87070; 87081; 93005; 93312; 93325; 93970; 94002; 94010; 94760; 97116; 97161; 97530; A4615; A4618; A6222; A6258; A6402; A6449; A7000; C1751; C1768; G0378; J0171; J0282; J0690; J1100; J1250; J1644; J1815; J1885; J1940; J2150; J2250; J2270; J2370; J2405; J2704; J2720; J3370; J3475; J3480; J3490; J7030; J7040; J7050; J7060; J7120; P9045; P9047